=== PATIENT | male | born 1955 | race Caucasian/White ===

== ENCOUNTER → 2018-02-20 | Day surgery (SDC) | payer OTHER ==
[~2018-02-20] VITALS: Ht 172.7 cm; Wt 80.7 kg
[~2018-02-20] MED LIST: ATORVASTATIN CA40 M1 PO; LIDODERM1 EACH TOP; LOSARTAN POTASS50 M1 PO; NAPROSYN500 M1 PO; NARATRIPTAN HC2.5 MG PO; PANTOPRAZOLE SO40 M1 PO
--- NOTE | 2018-02-20 14:42 | Operative Report ---
Operative/Inv Procedure Report Surgery Date: 02/20/18 Name of Procedure: Robotic assisted laparoscopic bilateral inguinal hernia repair with mesh Pre-Operative Diagnosis: Bilateral inguinal hernia (recurrent left, primary right) Post-Operative Diagnosis: Same Estimated Blood Loss: scant Surgeon/Desk Officer: Ge MERLOS,Tc Her/Glenna MATHEWS Anesthesia: general endotracheal tube Implants: Parietex pro-mild disabilities teacher Operative/Procedure Note Note: After consent patient brought to the operating room laid supine. General anesthesia was obtained and his abdomen was prepped and draped. Skin was observed local anesthesia at Chavez's point and a transverse incision made sharply. Access the peritoneum was gained percutaneously using an 8 mm optical trocar, just below Chavez's point. Pneumoperitoneum was achieved. 2 more 8 mm ports were placed under direct vision in the transverse plane. The patient is placed in Trendelenburg, robot docked, targeted and instruments placed under direct vision. I then broke scrub and went to the console. The abdomen was explored. There was a large right-sided hernia with visible hernia sac. Left side was obscured by overlying sigmoid colon. There is evidence of prior anterior left-sided repair. We took down the peritoneum superiorly on the left side to create a preperitoneal plane. This was achieved with cautery. Dissection was then carried forth using blunt and cautery dissection. There was a direct defect which was reduced and delivered inferiorly. We then dissected the entire direct space. There is a moderate size cord lipoma which was delivered and reflected medially. We dissected down to Primo's ligament and delineated symphysis. We then dissected inferiorly to accept a piece of preperitoneal mesh. Upon completion of the dissection I turned my attention to the right side. In a similar fashion, a preperitoneal flap was created and dissected inferiorly. There is a large indirect sac which was dissected free from the indirect space and reflected medially. The direct space was intact. Dissection was then carried forth similarly to the left side. Once I was happy with the dissection, a 10 x 15 cm piece of parietex pro mild disabilities teacher was placed in the cavity on each side. It was placed over the defects and unraveled and self adhered to the fascial tissues. Once I was happy with the placement of mesh the peritoneal flap was closed with a running absorbable 2-0V lock suture on each side. Sutures then removed and passed off the field. The ports were delivered and passed off the field. Skin incisions closed with 4-0 Vicryl. Steri-Strips and sterile dressing are applied. Sponge and needle counts are correct. Findings: Recurrent left direct Indirect right CC: Mariel MERLOS,David Mcdaniels
== END ==
LOC: STS 03:18
DX: K40.91 Unilateral inguinal hernia, without obstruction or gangrene, recurrent (principal); K40.90 Unilateral inguinal hernia, without obstruction or gangrene, not specified as recurrent; I10 Essential (primary) hypertension
CPT/HCPCS: 49651; 49650; S2900; C1781; C9290; J0131; J0690; J2250